=== PATIENT | female | born 1985 | race African-American/Black ===

== ENCOUNTER 2021-04-29 14:20 | Emergency (ER) | payer OTHER ==
[~2021-04-29] VITALS: Ht 165.1 cm; Wt 65.9 kg
[2021-04-29 14:47] VITALS: BP 121/93
== END 2021-04-29 17:20 | disposition home or self-care (01) ==
LOC: EMS 14:24
DX: M25.572 Pain in left ankle and joints of left foot (principal); R51.9 Headache, unspecified; V49.9XXA Car occupant (driver) (passenger) injured in unspecified traffic accident, initial encounter; Y93.89 Activity, other specified; Y92.89 Other specified places as the place of occurrence of the external cause; Y99.8 Other external cause status
CPT/HCPCS: 99283